=== PATIENT | male | born 1975 | race Hispanic/Latino ===

== ENCOUNTER 2020-11-23 15:55 | Emergency (ER) | payer OTHER ==
[~2020-11-23] VITALS: Ht 175.3 cm; Wt 78.6 kg
[2020-11-23] MEDS ORDERED: TETANUS/DIPHTHERIA TOX ADULT 0.5 ML SYR IM ONE (16:15)
[2020-11-23] MEDS ORDERED: BACITRACIN ZINC 0.9GM TP ONE (16:15)
[2020-11-23] MEDS ORDERED: LIDOCAINE HCL 1% 2 ML AMP INJ ONE (16:30)
[2020-11-23] MEDS ORDERED: TETANUS/DIPHTHERIA TOX ADULT 0.5 ML SYR ONE (16:58)
== END 2020-11-23 17:48 | disposition home or self-care (01) ==
LOC: FSED 16:12
DX: S61.210A Laceration without foreign body of right index finger without damage to nail, initial encounter (principal); W26.0XXA Contact with knife, initial encounter; Y99.0 Civilian activity done for income or pay; F17.210 Nicotine dependence, cigarettes, uncomplicated
CPT/HCPCS: 12001; 90471; 90714; 96372; 99283; J2001